=== PATIENT | female | born 1975 | race African-American/Black ===

== ENCOUNTER 2018-12-20 21:05 | Emergency (ER) | payer OTHER ==
[~2018-12-20] VITALS: Ht 162.6 cm; Wt 95.3 kg
[2018-12-20 21:08] VITALS: BP 144/106
--- NOTE | 2018-12-20 21:08 | NUR ---
ED Nurse Note: Patient presents BIBA, [place], obvious ETOH intoxication.
--- NOTE | 2018-12-20 21:14 | Emergency Room Report ---
History of Present Illness General Chief Complaint: Alcohol Intoxication Source: Patient Present Illness HPI this is a 43 yo female who is homeless. presents via EMS with c/o alcohol intoxication and depression. she was [place] and someone called 911. she complained of being depressed bc her mom last year. admits to drinking alcohol. no SI/HI. no hallucination. wants a place to sleep and something to eat. said that she can go to her Aunie's house later. Allergies: Coded Allergies: No Known Allergies (Unverified , 12/20/18) Patient History Past Medical History: see triage record, old chart reviewed Past Surgical History: none Pertinent Family History: none Social History: Reports: alcohol use Last Menstrual Period: UNABLE TO OBTAIN Now: No Immunizations: other Reviewed Nursing Documentation: PMH: Agreed; PSxH: Agreed Nursing Documentation-PMH Hx Hypertension: Yes History Of Psychiatric Problem: Yes Review of Systems Eye: Denies: eye pain, blurred vision ENT: Denies: ear pain, nose congestion, throat swelling Respiratory: Denies: cough, shortness of breath Cardiovascular: Denies: chest pain, palpitations Gastrointestinal: Denies: abdominal pain, diarrhea, nausea, vomiting Musculoskeletal: Denies: back pain, joint pain Skin: Denies: rash Neurological: Denies: headache, numbness Endocrine: Denies: increased thirst, increased urine Hematologic/Lymphatic: Denies: easy bruising All Other Systems: negative except mentioned in HPI Physical Exam Vital Signs Date Time Temp Pulse Resp B/P (MAP) Pulse Ox O2 Delivery O2 Flow Rate FiO2 12/20/18 21:00 98.8 99 16 144/106 (119) 99 Room Air vitals with htn Sp02 EP Interpretation: reviewed, normal General Appearance: well appearing, no apparent distress, alert Head: normocephalic, atraumatic Eyes: bilateral eye PERRL, bilateral eye EOMI ENT: hearing grossly normal, normal pharynx Neck: full range of motion, supple, no meningismus Respiratory: chest non-tender, lungs clear, normal breath sounds Cardiovascular #1: regular rate, rhythm, no murmur Gastrointestinal: normal bowel sounds, non tender, no mass, no organomegaly, no bruit, non-distended Musculoskeletal: back normal, gait/station normal, normal range of motion Psychiatric: mood/affect normal Skin: warm/dry Medical Decision Making Diagnostic Impression: Primary Impression: Acute alcoholic intoxication Qualified Codes: F10.920 - Alcohol use, unspecified with intoxication, uncomplicated Additional Impression: Depression Qualified Codes: F32.9 - Major depressive disorder, single episode, unspecified ER Course Patient presents with intoxication depression. No evidence of suicidal thoughts or homicidal thoughts. No hallucination or delusion. Patient is homeless but has some work to go. She does not want to go to [facility]. Will discharge home. Last Vital Signs Date Time Temp Pulse Resp B/P (MAP) Pulse Ox O2 Delivery O2 Flow Rate FiO2 12/20/18 21:00 98.8 99 16 144/106 (119) 99 Room Air Status: improved Disposition: HOME, SELF-CARE Condition: Stable Patient Instructions: Alcohol Intoxication, [id number] Additional Instructions: Abstain from alcohol. Follow-up with your doctor in 7 days. Return if worse. Harpreet Mckay MD Dec 20, 2018 21:14
--- NOTE | 2018-12-20 22:08 | NUR ---
ED Nurse Note: Patient request sandwich and a blanket, request accomodated.
--- NOTE | 2018-12-20 23:08 | NUR ---
ED Nurse Note: Patient resting comfortably no s/s of acute distress.
--- NOTE | 2018-12-21 00:15 | NUR ---
ED Nurse Note: Patient resting comfortably no s/s of acute distress.
--- NOTE | 2018-12-21 04:21 | NUR ---
ED Nurse Note: Patient reports a severe headache, 9/10 on pain scale. [facility] will be notified.
--- NOTE | 2018-12-21 05:20 | NUR ---
ED Nurse Note: Patient resting comfortably.
--- NOTE | 2018-12-21 06:10 | NUR ---
ED Nurse Note: Patient request medicatio for headache. patient accomodated.
--- NOTE | 2018-12-21 06:20 | NUR ---
ED Nurse Note: Patient cleared for discharge, verbalized understanding of discharge instructions. Patient ID band removed. Patient departed with all personal belongings.
[2018-12-21 06:21] VITALS: BP 144/106
== END 2018-12-21 06:22 | disposition home or self-care (01) ==
LOC: EDBD 21:05 → EMR 21:24
DX: F10.920 Alcohol use, unspecified with intoxication, uncomplicated (principal); F32.9 Major depressive disorder, single episode, unspecified; Z59.0 Homelessness; I10 Essential (primary) hypertension
CPT/HCPCS: 99282